=== PATIENT | male | born 1960 | race African-American/Black ===

== ENCOUNTER 2017-09-21 17:48 | Emergency (ER) | payer OTHER ==
[~2017-09-21] VITALS: Ht 167.6 cm; Wt 75.8 kg
[2017-09-21 18:40] LABS: ABSOLUTE NEUTROPHILS 6.8 thou/uL (1.4-8.2); BASOPHILS 0.5 % (0.0-2.0); EOSINOPHILS 0.8 % (0.0-3.0); HEMATOCRIT 41.4 % (42.0-52.0); HEMOGLOBIN 14.3 gm/dL (14.0-18.0); LYMPHOCYTES 20.3 % (24.0-44.0); MCH 31.8 pg (26.0-34.0); MCHC 34.5 g/dL (28.0-37.0); MCV 92.3 fL (80.0-100.0); PLATELET COUNT 197 thou/uL (150-400); POLYS 72.4 % (36.0-66.0); RBC 4.48 mil/uL (4.50-6.00); RDW 12.7 % (10.5-14.5); WBC 9.4 thou/uL (4.0-11.0)
[2017-09-21 18:46] LABS: URINE BILIRUBIN NEGATIVE (Negative); URINE BLOOD NEGATIVE (Negative); URINE CLARITY CLEAR; URINE COLOR YELLOW; URINE GLUCOSE-RANDOM* NEGATIVE (Negative); URINE KETONES TRACE (Negative); URINE LEUKOCYTES-REFLEX NEGATIVE (Negative); URINE NITRITE-REFLEX NEGATIVE (Negative); URINE PROTEIN (DIPSTICK) TRACE (Negative); URINE SPECIFIC GRAVITY 1.025 (1.005-1.035); URINE UROBILINOGEN 0.2 E.U./dl (0.2-1.0)
[2017-09-21 18:47] LABS: CALCIUM 9.4 mg/dL (8.5-10.1); CREATININE 1.4 mg/dL (0.7-1.3); POTASSIUM 3.9 mmol/L (3.5-5.1)
[2017-09-21] MEDS ORDERED: IBUPROFEN 600600 M1 PO (19:13)
[2017-09-21] MEDS ORDERED: TIZANIDINE HCL4 MG PO (19:13)
[2017-09-21 19:19] VITALS: BP 134/82
== END 2017-09-21 19:19 | disposition home or self-care (01) ==
LOC: ER 17:48
PROVIDERS: Nurse Practitioner
DX: S39.012A Strain of muscle, fascia and tendon of lower back, initial encounter (principal); S16.1XXA Strain of muscle, fascia and tendon at neck level, initial encounter; S06.0X0A Concussion without loss of consciousness, initial encounter; S30.0XXA Contusion of lower back and pelvis, initial encounter; V89.2XXA Person injured in unspecified motor-vehicle accident, traffic, initial encounter; Y93.89 Activity, other specified; Y92.89 Other specified places as the place of occurrence of the external cause; Y99.8 Other external cause status

== ENCOUNTER 2020-08-23 23:15 | Emergency (ER) | payer OTHER ==
[~2020-08-23] VITALS: Ht 167.6 cm; Wt 49.9 kg
[~2020-08-23 23:15] MED LIST: IBUPROFEN 600600 M1 PO; TIZANIDINE HCL4 MG PO
[2020-08-24 00:16] LABS: ABSOLUTE NEUTROPHILS 7.6 thou/uL (1.4-8.2); BASOPHILS 0.6 % (0.0-2.0); EOSINOPHILS 1.3 % (0.0-3.0); HEMATOCRIT 34.7 % (42.0-52.0); HEMOGLOBIN 11.8 gm/dL (14.0-18.0); LYMPHOCYTES 16.2 % (24.0-44.0); MCH 33.2 pg (26.0-34.0); MCV 97.5 fL (80.0-100.0); PLATELET COUNT 234 thou/uL (150-400); POLYS 75.9 % (36.0-66.0); RBC 3.56 mil/uL (4.50-6.00); RDW 13.9 % (10.5-14.5)
[2020-08-24 00:34] LABS: CALCIUM 8.3 mg/dL (8.5-10.1); CREATININE 1.1 mg/dL (0.7-1.3)
[2020-08-24 00:39] LABS: TOTAL BILIRUBIN 0.3 mg/dL (0.2-1.0); TOTAL PROTEIN 6.8 g/dL (6.4-8.2)
[2020-08-24 01:50] VITALS: BP 115/68
== END 2020-08-24 01:51 | disposition home or self-care (01) ==
LOC: ER 23:15
PROVIDERS: Emergency Medicine
DX: R53.83 Other fatigue (principal); M79.671 Pain in right foot